=== PATIENT | male | born 1950 | race Caucasian/White ===

== ENCOUNTER 2016-09-28 01:18 | Inpatient (IN) | payer OTHER, MEDICARE ==
[~2016-09-28] VITALS: Ht 162.6 cm; Wt 96.2 kg
[~2016-09-28 01:18] MED LIST: AMLODIPINE BESYL5 M1 PO; ASPIRIN EC81 M1 PO; ATENOLOL25 M1 PO; ATORVASTATIN CA10 M1 PO; FERROUS SULFAT325 M3 PO; LISINOPRIL20 M1 PO; XANAX XR1 M1 PO
--- NOTE | 2016-09-28 10:15 | Operative Report ---
Operative/Inv Procedure Report Surgery Date: 09/28/16 Name of Procedure: Right total hip arthroplasty Pre-Operative Diagnosis: Right hip osteoarthritis primary Post-Operative Diagnosis: Same with final pathology pending Estimated Blood Loss: 50ml to 100ml Surgeon/Washtub Worker Helper: VICKEY GOLD,sherie GALE Anesthesia: block Implants: [place] secure fit femoral stem size 8 with a 127 neck angle Trident acetabulum size 60 Biolox 36+0 femoral head Drains: None Specimens: Femoral head, acetabular reamings Microbiology: Urine Complications: None Condition: Stable Operative Indication: Patient is a 65-year-old man with worsening right hip symptoms. He was diagnosed with osteoarthritic changes with severe end-stage changes on x-ray. Due to ongoing symptoms and lack of improvement with conservative measures as well as interference of normal activities of daily living, patient wished to proceed with total hip arthroplasty. Risks, benefits and expectations were discussed which included but were not limited to persistent hip pain, need for subsequent surgery, infection, DVT, injury to blood vessel or nerve, anesthesia risks, leg length discrepancy, dislocation Operative/Procedure Note Note: Patient was brought to the operating room and transferred to the operating table. Once under appropriate anesthesia the patient was placed into a left lateral decubitus position with right side up. All bony prominences were well- padded. The patient was given preoperative IV antibiotics prophylactically. A standard lateral incision was made for anticipated superior approach to the hip. The incision was taken down sharply to the underlying fascia. Fascia was incised in line with the skin incision. Hip was internally rotated placing the external rotators on tension. Piriformis was dissected off of the capsule. Interval between the gluteus minimus tendon and the superior capsule was identified and a retractor was placed in this interval. I dissected the central posterior aspect of the capsule and reflected posteriorly for later repair. Superior and inferior portions of the posterior capsule were excised. Hip was dislocated. Severe end-stage standard changes of the femoral head. Femoral neck cut was then made based on preoperative templating and intraoperative measurements. I was then able to proceed with exposure of the acetabulum. I placed the appropriate retractors anteriorly and inferiorly. Remnants of the labral tissues were excised. There was severe end-stage and her changes of the acetabulum as well. After removing any soft tissues in the acetabular fossa, reamers starting at a size 46 and proceeded to a size 59 for insertion of a size 60 acetabulum. I trialed a size 58 acetabulum to confirm circumferential reaming. I was satisfied with the circumferential reaming. I then impacted the definitive size 60 acetabular shell Trident with the appropriate abduction and anteversion based on anatomic landmarks, [place] tower and preoperative x-rays. I was satisfied with the scratch fit. I then placed 2 6.5 mm cancellus screws in the safe zone. Copious irrigation followed. I impacted the definitive size polyethylene to his except a 36 motor meters femoral head. The locking mechanism was confirmed. I then placed a lap sponge within the depths of the acetabular fossa to protect the polyethylene during preparation of the femur. I placed a femoral elevator underneath the proximal femur and flexed the femur to about 60 and internally rotated about 90. I use a box osteotome to lateralize my insertion site. Hand reamers up to a size 8. I broached to a size 8 which filled his proximal femur very nicely. I left the last broach in place and then I did a trial reduction with a 127 neck angle and a 36+0 femoral head. The hip was reduced. No evidence of anterior instability with simultaneous extension and external rotation. No sign of posterior instability with simultaneous internal rotation adduction and flexion to greater than 90. I was satisfied with the adventist of the leg lengths. I then removed all trial components. Copious irrigation of the femoral canal followed. I then impacted the definitive size 8 secure fit femoral stem with the 127 neck angle. Excellent scratch fit. The trunnion was dried and a 36+0 femoral head Biolox was impacted in place and the locking mechanism was confirmed. Hip was reduced. Again stability was confirmed. Copious irrigation followed. I then closed and repaired the posterior capsule as well as the piriformis. Every level of closure was followed by copious irrigation. Fascia was closed with interrupted #1 Vicryl sutures. Subcutaneous tissues closed with 2-0 Vicryl in 2 layers due to the depth of the wound. [place] were applied. Dressings were applied and patient was awakened and taken to recovery room in good condition. No intraoperative complications. Blood loss was approximately 100 mL. Discharge Disposition: PACU
--- NOTE | 2016-09-28 14:27 | RADIOLOGY REPORT ---
EXAMINATION: XR HIP, RIGHT CLINICAL INFORMATION: Right hip replacement. COMPARISON: 01/18/2015. TECHNIQUE: AP view of the right hip is provided. FINDINGS: A right hip prosthesis is in place. There is no evidence for failure or migration. There is expected subcutaneous gas overlying the right hip. IMPRESSION: Expected postoperative appearance to the right hip following CRUZ.
[2016-09-28 16:13] VITALS: BP 136/70
--- NOTE | 2016-09-28 17:57 | PN- Student ---
URSZULA,TRICIA 09/28/16 4418: Subjective Subjective: POSTOP DAY #0 Patient is a 65 year old male who is POD #0 of right total hip replacement on who is doing well with no complaints of pain. He states that he tried to stand up without pain, but has not ambulated around the room. He states that he is having trouble voiding moderate amounts. He states that he has major anxiety but has been well controlled while in the hospital. He denies any nausea, vomiting, or dizziness. -flatus. ROS Neuro: Denies any headaches or changes in vision. Respiratory: Denies any SOB or difficulty breathing. Cardiac: Denies any cheest pain or palpitations. GI: Denies any abdominal pain or constipation. Is attempting regular diet this evening. MSK: Denies any back pain or LE pain. Objective Objective: General: Alert & oriented x3. Appropriate mood & affect. Respiratory: CABL. No wheezes, rhales, or ronchi. No accesory muscle use. Patient is on 2.0 L of oxygen through nasal canula. Cardaic: S1S2. Normal rate, regular rhythm. No mumurs, rubs, or gallops. No heath noted in LE. GI: Soft, nontender, nondistended. + BS. MSK: Bandage over incision site is c/d/i with no surrounding erythema. Patient denies any pain around the incision site with light palpation but notes minor numbness. Plantarflexion & dorsiflexion strength 5/5 bilaterally. Doralis pedis pulses present. Calves are soft and nontender bilaterally. Stocking compression devices are being utilized. Assessment/Plan Assessment: This is a 65 year old male who is POD #0 of a right total hip replacement on who is doing well with no complaints of pain. Plan: - Continue pain regimen. - Resume home medications as ordered. - Coumadin DVT prophylaxis. - Continue ABX prophylaxis 24 hours. - Weight bear as tolerated. - Promote use of incentive spirometry. - Will discuss with attending. ADELA HAYWARD 09/28/162056: Resident Review Statement Other Findings: Agree with student note. Patient with some pain at incision, controlled with pain medications. Now voiding without difficulty. No out of bed yet. Tolerating diet. EXT: Right hip dressing CDI, tender to palpation at incision. Gross sensation intact throughout leg. Palpable pedal pulses bilaterally. Gross motor intact, positive dorsi and plantar flexion bilaterally. Calves soft nontender bilaterally. AP: POD #0, appropriate postoperative pain, stable. Continue pain medications as needed, home medications, DVT prophylaxis with Coumadin per INR, a.m. labs, WBAT with PT. Will discuss with attending
[2016-09-28 19:24] VITALS: BP 122/64
--- NOTE | 2016-09-28 20:47 | NUR ---
PER RN REPORT, THIS PATIENT RECEIVED VACOMYCIN 1500 MG AT 0930 THIS AM BY OR NURSE,
[2016-09-28 21:00] VITALS: BP 118/64
[2016-09-29 00:54] VITALS: BP 140/80
[2016-09-29 05:04] VITALS: BP 124/60
--- NOTE | 2016-09-29 06:28 | NUR ---
LATE ENTRY PATIENT HR 52, BP 130/70. SURGICAL DENZEL CHAPMAN WAS MADE AWARE. FELIX WAS GIVEN HIS 2200 SCHEDULE LISINOPRIL 20MG BUT DID NOT GIVE AMLODIPINE 5MG AND ATENOLOL 25MG PER SURGICAL DENZEL CHAPMAN. PATIENT WAS RE-ASSESSED AGAIN, HR 57 AND BP 140/80.
--- NOTE | 2016-09-29 06:37 | NUR ---
LATE ENTRY PATIENT C/O PAIN 8 OUT OF 10. MORPHINE 4MG WAS ADMINISTERED. PATIENT CONTINUED C/O PAIN AFTER 3 HOURS, MORPHINE 4MG WAS ADMINISTERED AGAIN. PATIENT WAS RE-ASSESSED AFTER MORPHINE ADMINISTRATION FOR PAIN AND HE CONTINUED TO C/O PAIN 7 OUT OF 10. 2 PERCOCETS WERE AMINISTERED. PATIENT RE-ASSESSED AFTER ABOUT AN HOUR BUT HE CONTINUED TO C/O PAIN 7 OUT OF 10. SURGICAL PA WAS NOTIFIED. IV TYLENOL WAS ADMINISTERED PER SURGICAL PA ADELA. PATIENT RESTING COMFORTABLY IN BED. WILL CONTINUE TO MONITOR.
[2016-09-29 09:14] LABS: PT 12.5 SEC (9.4-12.5)
[2016-09-29 09:18] LABS: ABSOLUTE BASOPHIL COUNT 0 /CUMM (0.0-0.2); ABSOLUTE EOSINOPHIL COUNT 0 /CUMM (0.0-0.7); ABSOLUTE GRANULOCYTE CT 8.8 /CUMM (1.4-6.5); ABSOLUTE LYMPH COUNT 0.9 /CUMM (1.2-3.4); ABSOLUTE MONOCYTE COUNT 0.9 /CUMM (0.10-0.60); BASOPHIL % 0.2 % (0.0-2.0); EOSINOPHIL % 0.1 % (0-5); GRANULOCYTE % 83.2 % (42.2-75.2); HEMATOCRIT 35.7 % (42-52); MEAN CORPUSCULAR HGB CONC 33.6 G/DL (33.0-37.0); MEAN CORPUSCULAR VOLUME 89.4 FL (80.0-94.0); MEAN PLATELET VOLUME 8.3 FL (7.4-10.4); PLATELET COUNT 165 /CUMM (130-400); RBC DISTRIBUTION WIDTH 14.6 % (11.5-14.5); RED BLOOD CELL CT 3.99 /CUMM (4.70-6.10); WHITE BLOOD CELL COUNT 10.6 /CUMM (4.8-10.8)
--- NOTE | 2016-09-29 10:59 | PN- Orthopedic ---
See Addendum Subjective Subjective: Reports arthritic pain is appreciably improved already. Expected incisional / post-operative pain currently controlled. Tolerating diet. No nausea. Difficulty sleeping last night, with request to try melatonin tonight. No dizziness. No shortness of breath. No chest pains. Goal is for home in 1-2 days. Objective Vital Signs and I&Os Vital Signs Date Time Temp Pulse Resp B/P B/P Pulse O2 O2 Flow FiO2 Mean Ox Delivery Rate 09/29 0504 98.5 59 20 124/60 95 Nasal 2.0L Cannula 09/29 0054 97.5 57 20 140/80 96 Nasal 2.0L Cannula 09/29 0000 Nasal 2.0L Cannula 09/28 2254 130/70 09/28 2254 52 130/70 09/28 2254 52 130/70 09/28 2100 97.8 61 18 118/64 94 09/28 1924 97.9 63 18 122/64 94 09/28 1613 Nasal 2.0L Cannula 09/28 1613 97.5 57 16 136/70 94 Nasal 2.0L Cannula Intake & Output 09/29 1600 09/29 0800 09/29 0000 09/28 1600 09/28 0800 09/28 0000 Intake Total 800 Output Total 850 200 Balance -50 -200 Intake, IV 800 Output, Urine 850 200 Patient 212 lb Weight Physical Exam: General - alert & oriented x 3. out of bed to chair. no acute distress. Lungs - clear bilaterally. no w/r/r. Cardiac - s1s2. reg. Abdomen - soft. nontender. Extremities - warm bilaterally. no c/c/e. right hip dressing c/d/i. nvi. limited dorsiflexion rle. calves soft and nontender b/l. Current Medications: Current Medications Sig/Glory Start time Last Medication Dose Route Stop Time Status Admin Acetaminophen 1,000 MG Q6P PRN 09/29 0445 AC 09/29 N/A 1 UNIT IV 0440 Acetaminophen 650 MG ONCE 09/28 0000 DC PO 09/28 2359 Al Hydroxide/Mg 30 ML Q6P PRN 09/28 1530 AC Hydroxide PO Alprazolam 0.5 MG AT BEDTIME 09/28 2200 AC 09/28 PO 10/05 2158 2254 Amlodipine Besylate 5 MG AT BEDTIME 09/28 2200 AC PO Atenolol 25 MG AT BEDTIME 09/28 2200 AC PO Atorvastatin Calcium 10 MG 1700 09/28 1700 AC 09/28 PO 1655 Celecoxib 400 MG ONCE 09/28 0000 DC PO 09/28 2359 Dexamethasone 10 MG ONCE 09/28 0000 DC Sodium Chloride 50 ML IV 09/28 2359 Dextrose/Lactated 1,000 ML Q13H 09/28 1530 DC 09/29 Ringer's IV 0300 Docusate Sodium 100 MG DAILY NEEDED PRN 09/28 1530 DC PO Gabapentin 300 MG ONCE 09/28 0000 DC PO 09/28 2359 Lisinopril 20 MG AT BEDTIME 09/28 2200 AC 09/28 PO 2254 Melatonin 5 MG AT BEDTIME PRN 09/29 1030 UNVr PO Morphine Sulfate 2 MG Q3P PRN 09/28 1530 AC IV Morphine Sulfate 4 MG Q3P PRN 09/28 1530 AC 09/29 IV 0056 Ondansetron HCl 4 MG Q6P PRN 09/28 1530 AC IV Oxycodone HCl 5 MG Q6 PRN 09/29 0430 AC 09/29 PO 0841 Oxycodone HCl 10 MG Q6-PRN PRN 09/29 0430 AC PO Oxycodone HCl 10 MG ONCE 09/28 0000 DC PO 09/28 2359 Oxycodone/ 1 TAB Q4P PRN 09/28 1530 DC Acetaminophen PO Oxycodone/ 2 TAB Q4P PRN 09/28 1530 DC 09/29 Acetaminophen PO 0257 Polyethylene Glycol 17 GM DAILY 09/30 1000 UNVr PO Polyethylene Glycol 17 GM DAILY NEEDED PRN 09/28 1530 DC PO Scopolamine HBr 1 PAT ONCE 09/28 0000 DC TOP 09/28 2359 Senna/Docusate Sodium 2 TAB AT BEDTIME NEED.. 09/28 1530 AC PO Tranexamic Acid 1,000 MG .STK-MED ONE 09/28 1116 DC IV 09/28 1117 Vancomycin HCl 1,000 MG ONCE ONE 09/28 2200 CAN Sodium Chloride 250 ML IV 09/28 225 Vancomycin HCl 1,500 MG 2200 ONE 09/28 2200 DC 09/28 Sodium Chloride 500 ML IV 09/28 2359 2253 Warfarin Sodium 5 MG COUMADIN 1700 ONE 09/28 1700 DC 09/28 PO 07/24 1701 1655 Results Last 48 Hours of Labs: Laboratory Tests 09/29 0811 Chemistry Sodium (137 - 145 mmol/L) 138 Potassium (3.5 - 5.1 mmol/L) 3.9 Chloride (98 - 107 mmol/L) 104 Carbon Dioxide (22 - 30 mmol/L) 23 Anion Gap (5 - 16) 11 BUN (9 - 20 mg/dL) 17 Creatinine (0.7 - 1.2 mg/dL) 0.8 Estimated GFR (>60 ml/min) > 60 BUN/Creatinine Ratio (7 - 25 %) 21.3 Coagulation PT (9.4 - 12.5 SEC) 12.5 INR (0.90 - 1.17) 1.19 H Hematology CBC w Diff Pending WBC Pending RBC Pending Hgb Pending Hct Pending MCV Pending MCH Pending RDW Pending Plt Count Pending MPV Pending PUBS MCHC Pending Assessment/Plan Assessment/Plan This 65 year old male with hx htn, hld, POD#1 s/p right total hip arthroplasty for primary osteoarthritis tolerating diet. d/c iv fluids PT / OT. wbat. total hip precautions d/c colace per patient's request (apparently this has given him bloating discomfort in his past) try miralax daily f/u labs coumadin accordingly - dvt ppx dressing change tomorrow, POD#2 melatonin added for a sleep aid home meds currently ordered, including beta nuvia for htn will d/w Core Measures/Miscellaneous Venous Thromboembolism VTE Risk Factors: Age > 40, Surgery VTE Contraindications: No Contraindications VTE Diagnosis: No Beta Nuvia Is Beta Nuvia a Home Med? Yes If Yes, Was This Ordered Today? Yes Antibiotics Is Patient on Antibiotics? Yes If Yes: prophylaxis
[2016-09-29 14:42] VITALS: BP 126/60
[2016-09-29 22:30] VITALS: BP 136/60
--- NOTE | 2016-09-30 05:00 | NUR ---
LATE ENTRY NURSING NOTE: AT 0500, THIS RN ASSISTED THE PATIENT WITH RW TO THE BATHROOM. PATIENT RETURNED TO BED WITH RN ASSISTANCE AND SETTLED IN. BED ALARM ON AND IN PLACE. ALL NEEDS IN REACH, CALL LIGHT IN REACH, SAFETY MAINTAINED, ALL FALL PRECAUTIONS IN PLACE. THIS RN EXITED THE ROOM, AND THE PATIENT APPEARED WALKING IN THE HALLWAY SHORTLY AFTER. NO ALARM SOUNDED. THIS RN ASSISTED THE PATIENT BACK TO HIS ROOM AND EXPLAINED THE IMPORTANCE OF NOT AMBULATING WITHOUT A STAFF MEMBER PRESENT. THE BED ALARM WAS REPLACED WITH A NEW ONE AT THIS TIME. PATIENT ASSISTED INTO BED. ALPS, ADUCTOR PILLOW, ALARM ON AND IN PLACE. SAFETY MAINTAINED, ALL NEEDS IN REACH. THIS RN REPORTED MALFUNCTION OF BED ALARM TO NURSING OPERATOR [employer] AT SAFETY HUDDLE, WELL ONCOMING DAY RN
--- NOTE | 2016-09-30 06:10 | NUR ---
LATE ENTRY NURSING NOTE: AT THIS TIME, THE PATIENT WAS AWOKEN FOR MORNING VITALS. PATIENT IS ALERT AND ORIENTED TO SELF AND TIME/DATE BUT WHEN QUESTIONED HE IS CONFUSED ABOUT HIS LOCATION. WHEN RE-ORIENTED TO PLACE, HE RECALLS HE IS AT [facility]. NO ACUTE DISTRESS, VSS, RATES PAIN 5/10 IN RIGHT HIP. MEDICATED PER EMAR. ALL NEEDS IN REACH, SAFETY MAINTAINED, BED ALARM IN PLACE. DENZEL CHERY MADE AWARE OF ABOVE. WILL CONTINUE TO MONITOR.
[2016-09-30 06:21] VITALS: BP 118/70
[2016-09-30 08:23] LABS: PT 17.5 SEC (9.4-12.5)
--- NOTE | 2016-09-30 09:59 | PN- Orthopedic ---
Subjective Subjective: Has some pain, lessened with pain meds. Has been cleared by PT for home DC. Tolerating diet, voiding without difficulty. No chest pain, shortness of breath , nausea or vomiting Objective Vital Signs and I&Os Vital Signs Date Time Temp Pulse Resp B/P B/P Pulse O2 O2 Flow FiO2 Mean Ox Delivery Rate 09/30 0521 98.0 55 19 118/70 95 09/29 2230 98.2 61 19 136/60 96 Room Air 09/29 2101 65 122/60 09/29 2101 68 122/70 09/29 2100 68 122/70 09/29 1442 98.3 64 20 126/60 95 Room Air Intake & Output 09/30 0800 09/30 0000 09/29 1600 09/29 0809/29 0000 Intake Total 250 610 800 Output Total 750 300 850 200 Balance -500 310 -50 -200 Intake, IV 10 10 800 Intake, Oral 240 600 Number 0 Bowel Movements Output, Urine 750 300 850 200 Patient 212 lb Weight Physical Exam: GEN: NAD CARD: S1S2 RRR PULM: CTAB ABD: soft, nt EXT: Right hip dressing CDI, tender to palpation at incision, palpable pedal pulses, intact dorsi and plantar flexion, sensation grossly intact, calves soft nt Current Medications: Current Medications Sig/Glory Start time Last Medication Dose Route Stop Time Status Admin Acetaminophen 1,000 MG Q6P PRN 09/29 0445 AC 09/29 N/A 1 UNIT IV 1400 Al Hydroxide/Mg 30 ML Q6P PRN 09/28 1530 AC Hydroxide PO Alprazolam 0.5 MG AT BEDTIME 09/28 220 AC 09/29 PO 10/05 2158 210 Amlodipine Besylate 5 MG AT BEDTIME 09/28 220 AC 09/29 PO 210 Atenolol 25 MG AT BEDTIME 09/28 2200 AC 09/29 PO 210 Atorvastatin Calcium 10 MG 1700 09/28 1700 AC 09/29 PO 1654 Dextrose/Lactated 1,000 ML Q13H 09/28 1530 DC 09/29 Ringer's IV 0300 Docusate Sodium 100 MG DAILY NEEDED PRN 09/28 1530 DC PO Lisinopril 20 MG AT BEDTIME 09/28 2200 AC 09/29 PO 210 Melatonin 5 MG AT BEDTIME PRN 09/29 1030 AC PO Morphine Sulfate 2 MG Q3P PRN 09/28 1530 AC IV Morphine Sulfate 4 MG Q3P PRN 09/28 1530 AC 09/29 IV 0056 Ondansetron HCl 4 MG Q6P PRN 09/28 1530 AC IV Oxycodone HCl 5 MG Q6 PRN 09/29 0430 AC 09/30 PO 0605 Oxycodone HCl 10 MG Q6-PRN PRN 09/29 0430 AC 09/29 PO 2102 Patient Medication 1 ED .STK-MED ONE 09/29 1428 DC Teaching ED 09/29 1429 Polyethylene Glycol 17 GM DAILY 09/30 1000 AC PO Polyethylene Glycol 17 GM DAILY NEEDED PRN 09/28 1530 DC PO Senna/Docusate Sodium 2 TAB AT BEDTIME NEED.. 09/28 1530 AC PO Warfarin Sodium 5 MG COUMADIN 1700 ONE 09/29 1700 DC 09/29 PO 09/29 1701 1655 Assessment/Plan Assessment/Plan A: 65M POD #2 status post right CRUZ, stable with appropriate postoperative pain. P: - DVT ppx: Coumadin per INR -Regular diet - prn pain meds - OOB, ambulate, WBAT, PT - DC planning -Dressing change after PT treatment - will dw attending Core Measures/Miscellaneous Venous Thromboembolism VTE Risk Factors: Age > 40, Surgery VTE Contraindications: No Contraindications VTE Diagnosis: No Beta Nuvia Is Beta Nuvia a Home Med? Yes If Yes, Was This Ordered Today? Yes Antibiotics Is Patient on Antibiotics? Yes If Yes: prophylaxis
[2016-09-30] MEDS ORDERED: SENNA PLUS TAB1 EACH PO (10:08)
[2016-09-30] MEDS ORDERED: COUMADIN5 M2 PO (10:08)
[2016-09-30] MEDS ORDERED: PERCOCET 5-3251 EACH PO (10:08)
--- NOTE | 2016-09-30 10:13 | Patient Discharge Instructions ---
Discharge Instructions General Discharge Information You were seen/treated for: Right hip pain You had these procedures: Right total hip arthroplasty Watch for these problems: Increasing pain despite the use of pain medication Increasing redness, warmth or swelling Drainage of any type from incision Inability to bear weight on operative leg Persistent nausea and vomiting Fever greater than 101.5 degrees Other wound care: Please keep wound clean and dry. No ointments or lotions of any type on or near incision at any time. No exceptions. Daily dry dressing changes are recommended each day. Do not soak your wound in a bath at any time until otherwise indicated by your surgeon. You may shower, please dry wound immediately after shower with a clean towel. Special Instructions: Coumadin (warfarin): You are taking this medication to help prevent blood clot formation during the postoperative period. Please have your INR (Coumadin level ) checked daily until stable in therapeutic range (1-2). After [place] will receive these INR results and adjust your daily Coumadin dose. Contact his office prior to taking Coumadin if you do not hear from his office first or have any questions. Diet Continue normal diet: Yes Recommended Diet: Regular Activity Activity Limited to: Weight bear as tolerated Additional ACTIVITY Info: Uses assistive devices as needed Acute Coronary Syndrome Inclusion Criteria At DC or during hospital stay patient has or had the following: Discharge Core Measures Meds if any: Prescribed or Continued at Discharge Meds if any: NOT Prescribed or Continued at Discharge Congestive Heart Failure Inclusion Criteria At DC or during hospital stay patient has or had the following: Discharge Core Measures Meds if any: Prescribed or Continued at Discharge Meds if any: NOT Prescribed or Continued at Discharge Cerebrovascular accident Inclusion Criteria At DC or during hospital stay patient has or had the following: Discharge Core Measures Meds if any: Prescribed or Continued at Discharge Meds if any: NOT Prescribed or Continued at Discharge Venous thromboembolism Discharge Core Measures - Per Current guidelines, there needs to be overlap - treatment for the first 5 days of Warfarin therapy. - If discharged on Warfarin prior to 5 days of - overlap therapy, the patient will need to be - assessed for post discharge needs including - *Post discharge parental anticoagulation - *Warfarin and/or parental anticoagulation education - *Follow up date to check INR post discharge Meds if any: Prescribed or Continued at Discharge Note: Overlap Therapy is Warfarin and Anticoagulant Meds if any: NOT Prescribed or Continued at Discharge
--- NOTE | 2016-09-30 10:16 | Surg Short-stay <48hrs Dis Sum ---
Visit Information Visit Dates Admission Date: 09/28/16 Discharge Date: 09/30/16 Surgical Short Stay DC Summary Admission Diagnosis: Right hip primary osteoarthritis Final Diagnosis: Same, status post right total hip arthroplasty Procedure(s): Right total hip arthroplasty Summary/Significant Findings: Patient was admitted to the hospital for an elective total joint replacement. The procedure was tolerated well and patient was transferred to a general surgical floor. Diet was advanced and tolerated, and the patient voided spontaneously. The patient was evaluated and treated by physical therapy. At the time of hospital discharge, the vital signs were stable, neurovascular status was intact, and pain was controlled with the use of oral pain medications. DVT prophylaxis with Coumadin per INR. Condition at Discharge: Stable Discharge Disposition: home health services Discharge instructions provided to patient/family: Yes Post discharge follow-up plan: Contact Dr. Bishop' office to be seen in 2 weeks. Please call to schedule/ confirm appointment.
== END 2016-09-30 11:11 | disposition home health service (06) | DRG 470 ==
LOC: SDA 01:18 → ENRESERV 13:26 → ENTRNSPT 14:14 → EDTRNSPTSTS 14:48 → EDTRNSPT 14:48 → 2NB 15:01 → CMPTRNSPT 15:22 → 2NB 09-30 11:11
PROVIDERS: Physician Assistant; Physician Assistant Surgical; ADMIT Orthopaedic Surgery
PROC: 0SR904A Replacement of Right Hip Joint with Ceramic on Polyethylene Synthetic Substitute, Uncemented, Open Approach (ICD-10-PCS; principal; 2016-09-28)
DX: M16.11 Unilateral primary osteoarthritis, right hip (principal); I10 Essential (primary) hypertension; I25.10 Atherosclerotic heart disease of native coronary artery without angina pectoris; E78.5 Hyperlipidemia, unspecified; F41.9 Anxiety disorder, unspecified; F17.210 Nicotine dependence, cigarettes, uncomplicated
CPT/HCPCS: 2NSBP; 36415; 73501; 82436; 88304; 97110-GO; 97116-GO; 97161-GP; 97165-GO; 97530-GO; J1100; J2405; J3370; J7040